=== PATIENT | female | born 1940 | race Caucasian/White ===

== ENCOUNTER 2017-09-30 11:11 | Emergency (ER) | payer MEDICARE, OTHER ==
[~2017-09-30] VITALS: Ht 170.2 cm; Wt 100.0 kg
[~2017-09-30 11:11] MED LIST: ADAL60TA9 PO; ASPI81 PO; CELE40TA PO; DIOV320T PO; FEXO60TA PO; FLAXOIL2; FURO1TAB93 PO; MIRA0.12 PO; NABU500T PO; OMEP20CA5 PO; TAB-TAB PO; TRAZ100T50 PO; ZOCO10TA PO; [UNRECOGNIZED DRUG - OTHER]
[2017-09-30 11:15] VITALS: BP 170/71; PULSE 68; RESP 16; TEMP 98.3; O2SAT 96
--- NOTE | 2017-09-30 12:35 | PD ---
HPI Chief Complaint: Musculoskeletal Complaint Time Seen by Provider: 11:36 Travel History International Travel<30 days: No Contact w/Intl Traveler<30days: No Traveled to known affect area: No History of Present Illness HPI 77-year-old female here with right knee pain. She reports she felt pain in the right knee when she stood up from a sitting position. She did not fall to the ground. She felt a popping sensation within the knee. Patient has had 3 knee replacement surgeries involving the right knee. Last surgery was May 2017. She is also unhappy with her current orthopedic DRDerek FARAH and would like a referral to a new orthopedic doctor. She denies fever or chills. Reports that the knee has been swollen since the surgery. Denies warmth or erythema of the knee. Symptom severity is moderate. Aggravated by weightbearing and flexion of the knee. Relieved with rest. PFSH Past Medical History Arthritis: Yes Cardiovascular Problems: Yes Diminished Hearing: No Endocrine: No Gastrointestinal Disorders: Yes GERD: Yes Genitourinary: Yes (BLADDER SUSPENSION) Hiatal Hernia: Yes Hypertension: Yes Immune Disorder: Yes (FIBROMYALGIA) Medical other: Yes (FIBROMYALGIA, LUPUS SLE) Musculoskeletal: Yes Neurologic: Yes Migraines: Yes Influenza Vaccination: Yes ?: Not Past Surgical History Eye Surgery: Yes (CATARACT SX RIGHT EYE) Genitourinary Surgery: Yes (BLADDER LIFT, RECTOCELE ) Gynecologic Surgery: Yes (HYSTERECTOMY) Neurologic Surgery: Yes (LUMBAR LAMINECTOMY 1981) Oral Surgery: Yes (TMJ) Other Surgery: Yes Social History Alcohol Use: No Tobacco Use: No Allergies-Medications (Allergen,Severity, Reaction): Coded Allergies: hydrocodone (Unverified Allergy, Intermediate, HEADACHE; NAUSEA, 09/30/17) morphine (Unverified Allergy, Intermediate, VOMITING, 09/30/17) pregabalin (Unverified Allergy, Intermediate, 09/30/17) SWELLS Reported Meds & Prescriptions Reported Meds & Active Scripts Active Active Prescriptions or Reported Medications Unobtainable Review of Systems Except as stated in HPI: all other systems reviewed are Neg General / Constitutional: No: Fever Physical Exam Narrative GENERAL: Alert well-appearing 77-year-old female.. SKIN: Warm and dry. HEAD: Normocephalic. EYES: No injection or drainage. NECK: Supple, trachea midline. CARDIOVASCULAR: Regular rate and rhythm without murmurs, gallops, or rubs. RESPIRATORY: Breath sounds equal bilaterally. No accessory muscle use. GASTROINTESTINAL: Abdomen soft, non-tender, nondistended. MUSCULOSKELETAL: No cyanosis, or edema. Right knee: Well-healed surgical scar across anterior aspect of the knee. No warmth or erythema. The knee is diffusely swollen. No effusion. Joint is stable. 2+ popliteal pulse, posterior tibial, dorsal pedis. Normal sensation. Brisk cap refill. Data Data Last Documented VS Vital Signs Date Time Temp Pulse Resp B/P (MAP) Pulse Ox O2 Delivery O2 Flow Rate FiO2 09/30/17 11:15 98.3 68 16 170/71 (104) 96 Orders Orders Knee, Complete (4vws) (09/30/17 ) [facility] Medical Decision Making Medical Screen Exam Complete: Yes Emergency Medical Condition: Yes Differential Diagnosis Sprain, strain, fracture Narrative Course 77-year-old female here with right knee pain. Injury occurred when she stood from a sitting position. Extremities neurovascularly intact. There is no sign or symptoms of infection. She is requesting referral to a new orthopedic doctor. X-ray right knee: no fx Diagnosis Primary Impression: Knee pain Qualified Codes: M25.561 - Pain in right knee Referrals: Humberto Navarro Jr., MD, Todd Andrew MD Additional Instructions: Tylenol or Ibuprofen as needed for pain. Ice and elevate the extremity. Make an appointment for follow-up with orthopedic Script[facility] Unable to Obtain Active Prescriptions or Reported Meds Disposition: 01 DISCHARGE HOME Condition: Stable Laura Riggins Sep 30, 2017 12:35
--- NOTE | 2017-09-30 12:42 | RADRPT ---
EXAM DATE/TIME: 09/30/2017 12:22 [place] COMPARISON: No previous studies available for comparison. INDICATIONS : Lump on anterior aspect of right knee x 1 week, no known injury. MEDICAL HISTORY : None. SURGICAL HISTORY : Total knee replacement, right. ENCOUNTER: Initial ACUITY: 1 week PAIN SCORE: 7/10 LOCATION: Right anterior knee FINDINGS: Four view examination of the right knee demonstrates no evidence of fracture or dislocation. Bony mi neralization is normal. The articular surfaces are intact. Trace joint effusion is evident. I do not see an etiology for the patient's lump CONCLUSION: Total knee arthroplasty trace effusion otherwise negative. Moi Alberto MD FACR on September 30, 2017 at 12:39 Board Certified Radiologist. This report was verified electronically.
== END 2017-09-30 13:31 | disposition home or self-care (01) ==
LOC: PHED 11:11 → PHEFT 13:31
DX: M25.561 Pain in right knee (principal); I10 Essential (primary) hypertension; K21.9 Gastro-esophageal reflux disease without esophagitis; M32.9 Systemic lupus erythematosus, unspecified; M79.7 Fibromyalgia; Z96.651 Presence of right artificial knee joint
CPT/HCPCS: 73564